=== PATIENT | female | born 1965 | race Caucasian/White ===

== ENCOUNTER → 2021-03-30 12:41 | Outpatient (BNVA) | payer OTHER, SELFPAY | PROVIDERS: Visit Provider Physician Assistant | DX: S09.90XA Unspecified injury of head, initial encounter (principal); S40.012A Contusion of left shoulder, initial encounter; Y04.2XXA Assault by strike against or bumped into by another person, initial encounter; M25.532 Pain in left wrist | CPT/HCPCS: 99203 ==